=== PATIENT | female | born 1960 | race Caucasian/White ===

== ENCOUNTER → 2016-09-22 | Outpatient (CLI) | payer BC | LOC: CIMAGING 10:13 | DX: Z12.31 Encounter for screening mammogram for malignant neoplasm of breast (principal) | CPT/HCPCS: G0202 ==

== ENCOUNTER 2017-05-07 12:01 | Emergency (ER) | payer BC ==
--- NOTE | 2017-05-07 12:06 | EDPHY ---
H & P Time Seen by Provider: 05/07/17 12:05 Constitutional: Initial Vital Signs Temperature (C) 37 C 05/07/17 12:09 Heart Rate 70 05/07/17 12:09 Respiratory Rate 16 05/07/17 12:09 Blood Pressure 131/88 H 05/07/17 12:09 O2 Sat (%) 95 05/07/17 12:09 O2 Delivery Mode Room Air Allergies/Adverse Reactions: No Known Allergies Allergy (Unverified 05/07/17 12:13) Home Medications: Medication Instructions Recorded Ofloxacin 0.3% [Ocuflox 0.3%] 2 drops OP QID #1 opht.btl 05/07/17 Medical Decision Making ED Course/Re-evaluation: CHIEF COMPLAINT: Left eye pain HISTORY OF PRESENT ILLNESS: 57-year-old female who wears a daily soft contact in her left eye only. She swims frequently and wears got calls. After swimming she was taking the contact out of her eye and she made give slightly injured her eye. She is having a little bit of pain in the upper aspect of the eye under the eyelid. She denies any visual difficulty. She denies any significant pain. She denies any blurriness. She denies any discharge. She denies any other systemic symptomatology. REVIEW OF SYSTEMS: A 10 point review of systems was performed and is negative with the exception of the elements mentioned in the history of present illness. PHYSICAL EXAM: Visual Acuity: Noted from Nurse's notes. Pupils: PERRLA, EOMI, no nystagmus, no trauma, no injection. Lids: No edema or swelling Skin: No proptosis, no periorbital erythema or swelling, no vesicles Conjunctivae: Not injected, not icteric, the left eye conjunctiva at 12 o' clock is slightly abraded just above the corneal border. Cornea: Exam with slit lamp and fluorescein shows conjunctival abrasion otherwise unremarkable Anterior chamber: Normal, no hyphema or hypopyon Posterior Chamber: No papilledema or hemorrhages. Past medical history: Noncontributory Past surgical history: Noncontributory Family history: Noncontributory Social history: , employed, does not abuse tobacco drugs or alcohol DIFFERENTIAL DIAGNOSIS: Includes but is not limited to: Corneal abrasion, conjunctivitis, conjunctiva abrasion, scleritis, episcleritis. MEDICAL DECISION MAKING: This patient is a very minimal conjunctival abrasion at 12 o'clock just above the conjunctiva corneal border. She most likely injured herself with her fingernail when she was taking out her soft contact lens after swimming today. There is no change in visual acuity and the cornea is completely normal. I will give this patient Ocuflox for 3 days and she will follow up with her card hand. Departure - Departure Disposition: Home, Routine, Self-Care Clinical Impression: Conjunctival abrasion Qualifiers: Encounter type: initial encounter Laterality: left Qualified Code(s): S05.02XA - Injury of conjunctiva and corneal abrasion without foreign body, left eye, initial encounter Condition: Good Instructions: Eye Foreign Body (ED) Additional Instructions: Although the discharge instructions has eye foreign body you do not have a foreign body you have a conjunctiva abrasion please use the eyedrops for 3 days and follow up with her card hand if your eyes not completely better. Referrals: Neelima Germain MD [Primary Care Provider] - As per Instructions Prescriptions: Ofloxacin 0.3% [Ocuflox 0.3%] 2 drops OP QID #1 opht.btl
[2017-05-07] MEDS ORDERED: FLUORESCEIN SODIUM 1 MG STRIP OP ONE (12:11)
[2017-05-07 12:13] VITALS: BP 131/88; PULSE 70; RESP 16; O2SAT 95
[2017-05-07 12:15] VITALS: TEMP 98.6
== END 2017-05-07 12:26 | disposition home or self-care (01) ==
LOC: CED 12:01
DX: S05.02XA Injury of conjunctiva and corneal abrasion without foreign body, left eye, initial encounter (principal); X58.XXXA Exposure to other specified factors, initial encounter; Y99.8 Other external cause status; Y93.11 Activity, swimming

== ENCOUNTER → 2017-11-17 | Outpatient (CLI) | payer OTHER | LOC: CIMAGING 14:29 | PROVIDERS: ATTEND Family Medicine | DX: Z12.31 Encounter for screening mammogram for malignant neoplasm of breast (principal) ==

== ENCOUNTER → 2018-07-02 | Outpatient (CLI) | payer OTHER | LOC: CIMAGING 14:48 | PROVIDERS: ATTEND Family Medicine | DX: J98.09 Other diseases of bronchus, not elsewhere classified (principal) | CPT/HCPCS: 71046-PO ==

== ENCOUNTER → 2018-11-20 | Outpatient (CLI) | payer OTHER | LOC: CLAB 10:06 ==